=== PATIENT | female | born 1960 | race Caucasian/White ===

== ENCOUNTER 2020-01-16 17:24 | Emergency (ER) | payer MEDICARE ==
--- OUTSIDE RECORDS SUMMARY | 2020-01-16 17:30 | XMS REPORT | Continuity of Care Document ---
:1960 External Reference #:[id number] Author Name JULIANNA Mireles (transmitted by agent of provider Aliya Pierre) Address [address] [place] [address] Care Team Providers Name Role Phone Jaiden Colon MD - Internal Medicine Care Team Information Supervisor Anodizing Arpit Graves MD - Orthopaedic Care Team Information Supervisor Anodizing [phone] Surgery Lizbeth Farfan RPA - Medical Care Team Information Supervisor Anodizing [phone] Problems Active Problems Provider Date Essential hypertension Onset: 10/18/2018 Hyperlipidemia Onset: 10/18/2018 Recurrent pulmonary embolism JULIANNA iMreles Onset: 12/12/2019 Long-term current use of anticoagulant Onset: 10/18/2018 Note: Xarelto substituted 07/2019 Chronic kidney disease stage 3 JULIANNA Mireles Onset: 12/12/2019 Type 2 diabetes mellitus Onset: 10/18/2018 Cigarette smoker JULIANNA Mireles Onset: 12/12/2019 Gastroesophageal reflux disease Onset: 10/18/2018 Gastritis JULIANNA Mireles Onset: 12/12/2019 Note: erosions on endoscopy 2016 Hypothyroidism Onset: 10/18/2018 Overweight Onset: 10/18/2018 Localized, primary osteoarthritis Sierra Munson M.D. Onset: 09/27/2019 Note: knees Vitamin D deficiency Onset: 11/08/2018 Morbid obesity Sierra Munson M.D. Onset: 09/27/2019 History of polyp of colon JULIANNA Mireles Onset: 12/12/2019 Note: hyperplastic 2010 Social History Type Date Description Comments Sex Unknown ETOH Use Never used alcohol Tobacco Use Start: Unknown End: Patient is a former smoker Smoking Status Reviewed: 01/11/20 Patient is a former smoker Allergies, Adverse Reactions, Alerts Active Allergies Reaction Severity Comments Date Sulfa Antibiotics Hives Severe 12/02/2018 Medications Active Medications SIG Qnty Indications Ordering Date Provider [facility] Stool Softener take one capsule 30caps Brinkley 100mg q-o-dayfor Santana, 0 Capsules constipation Xarelto 1 by mouth every Cecilio 20mg Tablets day Santana, 9 Vitamin D-3 1 by mouth every 90tabs Brinkley 5000Unit Tablets day Santana, 9 Hydrochlorothiazide 1 by mouth every 90tabs Brinkley 50mg day Santana, 8 Tablets Tramadol HCL 1 by mouth with a 120tabs M15.9 Brinkley 50mg Tablets tylenol(500mg) Santana, 8 four times a day as needed Levothyroxine Sodium 1 by mouth every 30tabs Brinkley 150mcg day ( stop the 125 Santana, 8 Tablets mcg dose) Phentermine HCL 1 daily before 30caps Z00.01 Brinkley 37.5mg Capsules breakfast or 1-2 Santana, 8 hours after MD breakfast Acetaminophen 2 every 4 hours as 120tabs Brinkley 325mg Tablets needed for pain Santana, 8 Omeprazole 1 by mouth every 90caps Brinkley 20mg Capsules DR day Santana, 8 Metoprolol Tartrate 1 by mouth every 90tabs Brinkley 50mg day Santana, 8 Tablets Metformin HCL 1 by mouth twice a 180tabs Brinkley 500mg Tablets day Santana, 8 Lisinopril 1 by mouth every 90tabs Brinkley 10mg Tablets day Santana, 8 Atorvastatin Calcium 1 by mouth every 90tabs Brinkley 10mg day after supper Santana, 8 Tablets Melatonin 6 by mouth at Unknown 00/000 5mg Capsules bedtime 0 History Medications Xarelto 1 by mouth 42tabs Z79.01 Cecilio Santana, 08/15/2019 - 15mg every day 09/26/2019 Tablets Xarelto 1 daily 30tabs Cecilio Santana, 08/15/2019 - 20mg 09/26/2019 Tablets Trazodone HCL 1 by mouth 30tabs F51.01 Cecilio Santana, 07/20/2019 - every day 01/11/2020 50mg Tablets Immunizations CPT Code Status Date Vaccine Lot # [id number] Given 10/06/2018 Tdap - Tetanus/Diptheria/Acellular Pertussis [id number] Given 04/12/2018 Pneumonia Vaccine Vital Signs Date Vital Result Comment 01/11/2020 1:11pm Height 62 inches 5'2" Weight 290.44 lb Heart Rate 88 /min BP Systolic Sitting 128 mmHg BP Diastolic Sitting 80 mmHg O2 % BldC Oximetry 97 % BMI (Body Mass Index) 53.1 kg/m2 09/27/2019 1:38pm Height 62 inches 5'2" Weight 294.00 lb Heart Rate 60 /min BP Systolic 124 mmHg BP Diastolic 78 mmHg Respiratory Rate 16 /min Body Temperature 97.3 F Pain Level 9 BMI (Body Mass Index) 53.8 kg/m2 Results Test Acquired Date Facility Test Result H/L Range Note CBC Auto 12/30/2019 [facility] White Blood 10.9 10^3/uL High 3.5-10.[address] [place] [address] [phone] Red Blood Count 4.79 10^6/uL Normal 3.70-4.87 Hemoglobin 15.1 g/dL Normal 12.0-16.0 Hematocrit 44 % Normal 35-47 Mean Corpuscular Volume 93 fL Normal 80-97 Mean Corpuscular Hemoglobin 32 pg High 27-31 Mean Corpuscular HGB Conc 34 g/dL Normal 31-36 Red Cell Distribution Width 13 % Normal 10-15 Platelet Count 276 10^3/uL Normal 150-450 Mean Platelet Volume 9.8 fL Normal 7.4-10.4 Abs Neutrophils 5.6 10^3/uL Normal 1.5-7.7 Abs Lymphocytes 4.1 10^3/uL Normal 1.0-4.8 Abs Monocytes 0.7 10^3/uL Normal 0-0.8 Abs Eosinophils 0.5 10^3/uL Normal 0-0.6 Abs Basophils 0.1 10^3/uL Normal 0-0.2 Abs Nucleated RBC 0.0 10^3/uL Granulocyte % 51.4 % Lymphocyte % 37.4 % Monocyte % 6.2 % Eosinophil % 4.3 % Basophil % 0.7 % Nucleated Red Blood Cells % 0.2 Basic Metabolic 12/30/2019 [facility] Sodium 136 mmol/L Normal 135-145 Panel [address] [place] [address] [phone] Potassium 4.8 mmol/L Normal 3.5-5.0 Chloride 101 mmol/L Normal 101-111 Co2 Carbon Dioxide 25 mmol/L Normal 22-32 Anion Gap 10 mmol/L Normal 2-11 Glucose 105 mg/dL High 70-100 Blood Urea Nitrogen 31 mg/dL High 6-24 Creatinine 1.14 mg/dL High 0.51-0.95 BUN/Creatinine Ratio 27.2 High 8-20 Calcium 10.0 mg/dL Normal 8.6-10.3 Egfr Non- 48.5 >60 Egfr 58.6 >60 1 Lipid Profile 12/30/2019 [facility] Triglycerides 186 mg/dL 2 (Trig/Chol/HDL) [address] [place] [address] [phone] Cholesterol 128 mg/dL 3 HDL Cholesterol 44.6 mg/dL 4 LDL Cholesterol 46 mg/dL 5 Liver Function 12/30/2019 [facility] Total Protein 6.4 g/dL Normal 6.4-8.[address] [place] [address] [phone] Albumin 3.8 g/dL Normal 3.2-5.2 Globulin 2.6 g/dL Normal 2-4 Albumin/Globulin Ratio 1.5 Normal 1-3 Total Bilirubin 0.60 mg/dL Normal 0.2-1.0 Direct Bilirubin 0.10 mg/dL Normal 0.03-0.18 Indirect Bilirubin 0.5 mg/dL Normal 0.3-1.0 Alkaline Phosphatase 63 U/L Normal 34-104 Alt 9 U/L Normal 7-52 Ast 13 U/L Normal 13-39 Laboratory test 12/30/2019 [facility] Vitamin D 55.4 ng/mL High 20-50 6 finding 101 Total 25(Oh) [place] [address] [phone] Hepatitis C 12/30/2019 [facility] HCV Index 0.02 s/c Antibody [address] [place] [address] [phone] Hepatitis C Antibody Negative Negative Comp Metabolic 11/15/2019 [facility] Sodium 139 mmol/L Normal 135-[address] [place] [address] [phone] Potassium 4.3 mmol/L Normal 3.5-5.0 Chloride 105 mmol/L Normal 101-111 Co2 Carbon Dioxide 25 mmol/L Normal 22-32 Anion Gap 9 mmol/L Normal 2-11 Glucose 117 mg/dL High 70-100 Blood Urea Nitrogen 30 mg/dL High 6-24 Creatinine 1.25 mg/dL High 0.51-0.95 BUN/Creatinine Ratio 24.0 High 8-20 Calcium 9.9 mg/dL Normal 8.6-10.3 Total Protein 6.7 g/dL Normal 6.4-8.9 Albumin 4.0 g/dL Normal 3.2-5.2 Globulin 2.7 g/dL Normal 2-4 Albumin/Globulin Ratio 1.5 Normal 1-3 Total Bilirubin 0.60 mg/dL Normal 0.2-1.0 Alkaline Phosphatase 70 U/L Normal 34-104 Alt 10 U/L Normal 7-52 Ast 12 U/L Low 13-39 Egfr Non- 43.6 >60 Egfr 52.7 >60 7 Laboratory test 11/15/2019 [facility] Hemoglobin A1c 5.5 % Normal 4.0-5.6 8 finding 101 (Glyco HGB) [place] [address] [phone] Comp Metabolic 09/09/2019 [facility] Sodium 137 Normal 135- [address] mmol/[place] [address] [phone] Potassium 4.8 mmol/L Normal 3.5-5.0 Chloride 101 mmol/L Normal 101-111 Co2 Carbon Dioxide 29 mmol/L Normal 22-32 Anion Gap 7 mmol/L Normal 2-11 Glucose 101 mg/dL High 70-100 Blood Urea Nitrogen 23 mg/dL Normal 6-24 Creatinine 1.13 mg/dL High 0.51-0.95 BUN/Creatinine Ratio 20.4 High 8-20 Calcium 9.9 mg/dL Normal 8.6-10.3 Total Protein 6.3 g/dL Low 6.4-8.9 Albumin 3.8 g/dL Normal 3.2-5.2 Globulin 2.5 g/dL Normal 2-4 Albumin/Globulin Ratio 1.5 Normal 1-3 Total Bilirubin 0.90 mg/dL Normal 0.2-1.0 Alkaline Phosphatase 70 U/L Normal 34-104 Alt 11 U/L Normal 7-52 Ast 13 U/L Normal 13-39 Egfr Non- 49.0 >60 Egfr 59.2 >60 9 Inr/Protime 08/31/2019 [facility] Inr 1.33 High 0.82-1.[address] [place] [address] [phone] Inr/Protime 07/19/2019 [facility] Inr 2.32 High 0.82-1.[address] [place] [address] [phone] 1 Because ethnic data is not always readily available, this report includes an eGFR for both -Americans and non- Americans. The National Kidney Disease Education Program (NKDEP) does not endorse the use of the MDRD equation for patients that are not between the ages of 18 and 70, are , have extremes of body size, muscle mass, or nutritional status, or are non- or non-. According to the National Kidney Foundation, irrespective of diagnosis, the stage of the disease is based on the level of kidney function: Stage Description GFR(mL/min/1.73 m(2)) 1 Kidney damage with normal or decreased GFR 90 2 Kidney damage with mild decrease in GFR 60-89 3 Moderate decrease in GFR 30-59 4 Severe decrease in GFR 15-29 5 Kidney failure <15 (or dialysis) 2 Desirable: <150 Borderline High: 150-199 High: 200-499 Very High: >500 3 Desirable: <200 Borderline High: 200-239 High: >239 4 Low: <40 Desirable: 40-60 High: >60 5 Desirable: <100 Near Optimal: 100-129 Borderline High: 130-159 High: 160-189 Very High: >189 6 Total 25-Hydroxyvitamin D2 and D3 (25-OH-VitD) <10 ng/mL (severe deficiency) 10-19 ng/mL (mild to moderate deficiency) 20-50 ng/mL (optimum levels) 51-80 ng/mL (increased risk of hypercalciuria) >80 ng/mL (toxicity possible) 7 Because ethnic data is not always readily available, this report includes an eGFR for both -Americans and non- Americans. The National Kidney Disease Education Program (NKDEP) does not endorse the use of the MDRD equation for patients that are not between the ages of 18 and 70, are , have extremes of body size, muscle mass, or nutritional status, or are non- or non-. According to the National Kidney Foundation, irrespective of diagnosis, the stage of the disease is based on the level of kidney function: Stage Description GFR(mL/min/1.73 m(2)) 1 Kidney damage with normal or decreased GFR 90 2 Kidney damage with mild decrease in GFR 60-89 3 Moderate decrease in GFR 30-59 4 Severe decrease in GFR 15-29 5 Kidney failure <15 (or dialysis) 8 Therapeutic target for the treatment of diabetes mellitus patients is <7% HBA1C, and in selective patients <6.0%. Please refer to [place] [employer] diabetic care guidelines for further information. 9 Because ethnic data is not always readily available, this report includes an eGFR for both -Americans and non- Americans. The National Kidney Disease Education Program (NKDEP) does not endorse the use of the MDRD equation for patients that are not between the ages of 18 and 70, are , have extremes of body size, muscle mass, or nutritional status, or are non- or non-. According to the National Kidney Foundation, irrespective of diagnosis, the stage of the disease is based on the level of kidney function: Stage Description GFR(mL/min/1.73 m(2)) 1 Kidney damage with normal or decreased GFR 90 2 Kidney damage with mild decrease in GFR 60-89 3 Moderate decrease in GFR 30-59 4 Severe decrease in GFR 15-29 5 Kidney failure <15 (or dialysis) 10 Standard intensity warfarin therapeutic range: 2.0-3.0 High intensity warfarin therapeutic range: 2.5-3.5 11 Standard intensity warfarin therapeutic range: 2.0-3.0 High intensity warfarin therapeutic range: 2.5-3.5 Procedures Date Code Description Status 10/31/2018 68094181 Mammogram Completed 11/29/2010 32687981 Colonoscopy Completed Medical Devices Description No Information Available Encounters Type Date Location Provider Dx Diagnosis Office Visit 09/27/2019 [facility] Sierra Munson, M25.561 Pain in right 1:[facility]p [place] [facility] knee M25.461 Effusion, right knee M17.11 Unilateral primary osteoarthritis, right knee E66.01 Morbid (severe) obesity due to excess calories Z68.43 Body mass index (BMI) 50.0-59.9, adult Office Visit 09/12/2019 2:30p [facility] Cecilio Santana, M25.561 Pain in Care right knee E66.3 Overweight E11.9 Type 2 diabetes mellitus without complications Office Visit 08/15/2019 3:15p [facility] Cecilio Santana, M25.561 Pain in Care right knee 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 Office Visit 08/08/2019 3:15p [facility] Cecilio Santana, M25.561 Pain in Care right knee M25.562 Pain in left knee Office Visit 07/20/2019 2:45p [facility] Cecilio Santana, 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 M25.561 Pain in right knee E66.3 Overweight Assessments Date Code Description Provider 01/11/2020 I10 Essential (primary) hypertension JULIANNA Mireles 01/11/2020 Z86.711 Personal history of pulmonary embolism Lizbeth Farfan, JULIANNA 01/11/2020 E11.9 Type 2 diabetes mellitus without Lizbeth Farfan, JULIANNA complications 01/11/2020 E03.9 Hypothyroidism, unspecified Lizbeth Farfan, PA 01/11/2020 Z12.31 Encounter for screening mammogram for JULIANNA Mireles malignant neoplasm of breast 01/11/2020 Z68.43 Body mass index (BMI) 50.0-59.9, adult JULIANNA Mireles 09/27/2019 M25.561 Pain in right knee Sierra Munson M.D. 09/27/2019 M25.461 Effusion, right knee Sierra Munson M.D. 09/27/2019 M17.11 Unilateral primary osteoarthritis, right Sierra Munson M.D. knee 09/27/2019 E66.01 Morbid (severe) obesity due to excess Sierra Munson M.D. calories 09/27/2019 Z68.43 Body mass index (BMI) 50.0-59.9, adult Sierra Munson M.D. 09/12/2019 M25.561 Pain in right knee Cecilio Santana MD 09/12/2019 E66.3 Overweight Cecilio Santana MD 09/12/2019 E11.9 Type 2 diabetes mellitus without Cecilio Santana MD complications 08/15/2019 M25.561 Pain in right knee Cecilio Santana MD 08/15/2019 Z79.01 residential (current) use of anticoagulants Cecilio Santana MD 08/08/2019 M25.561 Pain in right knee Cecilio Santana MD 08/08/2019 M25.562 Pain in left knee Cecilio Santana MD 07/20/2019 F51.01 Primary insomnia Cecilio Santana MD 07/20/2019 M25.561 Pain in right knee Cecilio Santana MD 07/20/2019 E66.3 Overweight Cecilio Santana MD Plan of Treatment Future Appointment(s):04/10/2020 2:30 pm - JULIANNA Mireels at [facility]03/29/2020 2:00 pm - Sierra Munson M.D. at [facility] at [id number] - MANNY Mireles10 Essential (primary) hypertensionNew Labs: Basic Metabolic Panel, Ordered: 01/11/20Hepatitis C Antibody, Ordered: Hemoglobin A1c (Glyco HGB), Ordered: 01/11/20Comments:Current medication(s): HCTZ 50mg daily, Lisinopril 10mg daily, Metoprolol tartrate 50mg cnaokC11.711 Personal history of pulmonary embolismNew Labs:CBC Auto Diff, Ordered: Comments:Lifetime anticoagulationCurrent treatment with RiolybiV07.9 Type 2 diabetes mellitus without complicationsNew Labs:Hemoglobin A1c (Glyco HGB), Ordered: 01/11/20Comments:Current medication(s): Metformin 500mg BIDE03.9 Hypothyroidism, unspecifiedNew Labs:TSH (Thyroid Stim Horm), Ordered: Comments:Current supplementation: LT 150mcg druxdQ08.31 Encounter for screening mammogram for malignant neoplasm of breastNew Xrays:Mammogram Screening Nilson, Ordered: 01/11/20Z68.43 Body mass index (BMI) 50.0-59.9, adultComments:~114 lb weight loss since 12/2018Follow up:3 monthsAllNew Medication:[facility] Stool Softener 100 mg - take one capsule q-o-dayfor constipation Functional Status Functional Condition Comment Date Status Dentures Active Rolling walker is used to ambulate Active Mental Status Description No Information Available Referrals Refer to Reason for Referral Status Appt Date Arpit Graves MD Please arrive at the time listed on Received Complete your referral, this is your check in time. Please be sure to bring your insurance cards & photo ID as well as any copayment associated with the insurance. If you have any questions or concerns, please feel free to contact [place] @ [phone]. Thank you. [address] [place] [address] [phone]
[2020-01-16 18:24] VITALS: BP 106/65
--- NOTE | 2020-01-16 18:30 | UC ---
Lower Extremity/Ankle HPI - HPI Summary HPI Summary: 59 year old [id number] diabetic who noted some redness to her left foot near the base of her great toe over the past 2 days with tenderness. She denies any injury. No history of gout. She does have a history of pulmonary embolus however denies any calf pain and no shortness of breath. - History of Current Complaint Chief Complaint: UCLowerExtremity Stated Complaint: LEFT FOOT PAIN Time Seen by Provider: 01/16/20 18:18 Hx Obtained From: Patient ?: No Onset/Duration: Gradual Onset Severity Initially: Mild Severity Currently: Mild Pain Intensity: 9 Aggravating Factor(s): Ambulation Alleviating Factor(s): Rest Able to Bear Weight: Yes - Allergies/Home Medications Allergies/Adverse Reactions: Allergies Allergy/AdvReac Type Severity Reaction Status Date / Time Sulfa (Sulfonamide Allergy Severe hives and Verified 01/16/20 18:11 Antibiotics) dehydration Home Medications: Home Medications Acetaminophen [Acetaminophen Extra Strength] 500 mg PO QID 01/16/20 [History Confirmed 01/16/20] Cholecalciferol (Vitamin D3) [Vitamin D3] 125 mcg PO DAILY 01/16/20 [History Confirmed 01/16/20] Hydrochlorothiazide TAB* [Hydrodiuril TAB*] 50 mg PO BID 01/16/20 [History Confirmed 01/16/20] Levothyroxine TAB* [Synthroid TAB*] 150 mcg PO DAILY 01/16/20 [History Confirmed 01/16/20] Lisinopril TAB* [Prinivil TAB*] 10 mg PO DAILY 01/16/20 [History Confirmed 01/16] Metoprolol Tartrate 50 mg PO DAILY 01/16/20 [History Confirmed 01/16/20] Phentermine HCl 37.5 mg PO BID 01/16/20 [History Confirmed 01/16/20] Rivaroxaban TAB(*) [Xarelto 20 mg] 20 mg PO DAILY 01/16/20 [History Confirmed ] metFORMIN* [Glucophage 500 MG TAB *] 500 mg PO BID 01/16/20 [History Confirmed 01/16/20] traMADol TAB* [Ultram*] 50 mg PO QID 01/16/20 [History Confirmed 01/16/20] PMH/Surg Hx/FS Hx/Imm Hx Previously Healthy: Yes Endocrine History: Diabetes, Thyroid Disease Cardiovascular History: Cardiac Disease, Hypertension - Surgical History Surgical History: Yes Surgery Procedure, Year, and Place: - Family History Known Family History: Positive: Non-Contributory - Social History Alcohol Use: None Substance Use Type: None Smoking Status (MU): Former Smoker When Did the Patient Quit Smoking/Using Tobacco: 2006 Household Exposure Type: Cigarettes Review of Systems All Other Systems Reviewed And Are Negative: Yes Skin: Positive: Other - Redness to her left foot just below the great toe with tenderness. No streaking. The patient did saleem the edges of the erythema. Musculoskeletal: Negative: Calf Tenderness Is Patient Immunocompromised?: No Physical Exam Triage Information Reviewed: Yes Appearance: Well-Appearing, No Pain Distress, Well-Nourished Vital Signs: Initial Vital Signs Temp 98.6 F 01/16/20 18:19 Pulse 111 01/16/20 18:19 Resp 20 01/16/20 18:19 BP 106/65 01/16/20 18: Pulse Ox 100 01/16/20 18:19 Vital Signs Reviewed: Yes Musculoskeletal: Positive: Strength Intact, ROM Intact, Other: - Good peripheral pulses, neuro sensation and capillary refill. Normal range of motion. Neurological: Positive: Alert, Muscle Tone Normal Psychological Exam: Normal Skin: Positive: Other - There is an area of erythema at the base of the great toe dorsum of her foot which is approximately 1.5 cm in width approximately 2.5 cm in length with tenderness on palpation. No evidence of trauma or injury. Lower Extremity Course/Dx - Course Course Of Treatment: The patient is comfortable here. She is to definitely follow up with her primary care provider on Wednesday if no improvement. - Differential Dx/Diagnosis Provider Diagnosis: Cellulitis of foot Discharge ED - Sign-Out/Discharge Documenting (check all that apply): Patient Departure All imaging exams completed and their final reports reviewed: No Studies - Discharge Plan Condition: Good Disposition: HOME Prescriptions: Amoxicillin/Clavulanate TAB* [Augmentin TAB 875*] 875 mg PO BID 10 Days #20 tab Patient Education Materials: Cellulitis (DC) Referrals: Cecilio Santana MD [Primary Care Provider] - Additional Instructions: Elevate as much as possible, apply warm moist compresses to the red area 4-6 times a day for 20 minutes each time. Take the antibiotic with food. Definite follow-up on or Wednesday if improvement. If you develop red streaks up your foot or leg, fever or any worsening symptoms then you are to go to the emergency room. - Billing Disposition and Condition Condition: GOOD Disposition: Home - Attestation Statements Provider Attestation: This patient was not seen by me. I was available for consult. Chart reviewed. RACHANA
== END 2020-01-16 18:40 | disposition home or self-care (01) ==
LOC: UCCORT 17:24
DX: L03.032 Cellulitis of left toe (principal); E11.9 Type 2 diabetes mellitus without complications; E07.9 Disorder of thyroid, unspecified; I10 Essential (primary) hypertension; Z79.84 Long term (current) use of oral hypoglycemic drugs; Z79.890 Hormone replacement therapy; Z88.2 Allergy status to sulfonamides; Z79.899 Other long term (current) drug therapy; Z87.891 Personal history of nicotine dependence
CPT/HCPCS: 99212; G0463

== ENCOUNTER 2021-07-16 06:21 | Inpatient (IN) ==
[~2021-07-16 06:21] MED LIST: Buffered Lidocaine 1% SYRIN 1 ml INTRADERM ONE; Lactated Ringers 1000 ml BAG 1,000 ML IV SCH
[2021-07-16] MEDS ORDERED: ceFAZolin 1 GM ADVAN 1 GM ADDV.VIAL IVPB ONE (06:46)
[2021-07-16] MEDS ORDERED: ceFAZolin 2 GM in NS PREMIX 2 GM/100 ML BAG IVPB ONE (06:46)
[2021-07-16] MEDS ORDERED: Heparin 5000 UNITS/ML 1 mL VIAL ONE (06:46)
[2021-07-16] MEDS ORDERED: fentaNYL 250 mcg/5 ml 50 MCG/ML 5 ml VIAL (250 MCG) ONE ×2 (07:03→11:53)
[2021-07-16] MEDS ORDERED: Propofol 10 MG/ML 20 ML BTL ONE (07:03)
[2021-07-16] MEDS ORDERED: Dexamethasone IV 4 MG/ML VIAL 1 ml VIAL ONE ×2 (07:03→08:04)
[2021-07-16] MEDS ORDERED: Rocuronium 50 mg VIAL 10 mg/ml 5 ml VIAL (50 mg) ONE ×4 (07:03→11:43)
[2021-07-16] MEDS ORDERED: Lidocaine 2% PF 5 ML VIAL ONE (07:03)
[2021-07-16] MEDS ORDERED: Ondansetron 4 mg VIAL 2 MG/ML 2 ml VIAL ONE (07:03)
[2021-07-16] MEDS ORDERED: Midazolam 2 mg/2 ml VIAL 1 mg/ml 2 ml VIAL (2 mg) ONE (07:03)
[2021-07-16] MEDS ORDERED: Methylene Blue 0.5 % 50 MG/10 ML AMP IV ONE (07:10)
[2021-07-16] MEDS ORDERED: Bupivacaine 0.25% SDV 30 ML ONE (07:11)
[2021-07-16] MEDS ORDERED: Phenylephrine 40 mcg/mL 10mL (400mcg) SYRINGE ONE (08:05)
[2021-07-16] MEDS ORDERED: Phenylephrine IV 10 MG/ML 1 ml VIAL ONE ×2 (08:29→11:40)
[2021-07-16] MEDS ORDERED: Acetaminophen IV 1 GM/100ML 100 ML IV PRN (08:46)
[2021-07-16] MEDS ORDERED: Ondansetron 4 mg VIAL 2 MG/ML 2 ml VIAL IV PRN ×2 (08:46→13:15)
[2021-07-16] MEDS ORDERED: DiMENhydriNATE IV 50 mg/ml 1 ml VIAL IV PUSH PRN (08:46)
[2021-07-16] MEDS ORDERED: Naloxone 0.4 mg VIAL 0.4 mg/ml 1 ml VIAL IV PRN (08:46)
[2021-07-16] MEDS ORDERED: ceFAZolin VIAL VIAL ONE ×3 (11:32)
[2021-07-16] MEDS ORDERED: Sugammadex 500 MG/5 ML 5 ml VIAL IV PUSH ONE (12:49)
[2021-07-16] MEDS ORDERED: diPHENhydraMINE IV 50 MG/ML 1 ml VIAL (BENADRYL) SLOW PUSH PRN (13:15)
[2021-07-16] MEDS ORDERED: HYDROmorphone 0.5 MG/0.5 ML SYRINGE IV SLOW PU PRN (13:15)
[2021-07-16] MEDS ORDERED: HYDROmorphone 1 MG/1 ML SYRINGE ONE (13:18)
[2021-07-16] MEDS: HYDROmorphone 1 MG/1 ML SYRINGE IV PRN ×3 (13:20→13:54)
[2021-07-16] MEDS ORDERED: fentaNYL 100 mcg/2 ml 50 MCG/ML VIAL ONE (13:24)
[2021-07-16] MEDS: fentaNYL 100 mcg/2 ml 50 MCG/ML VIAL IV PRN ×4 (13:26→13:52)
[2021-07-16] MEDS ORDERED: Acetaminophen IV 1 GM/100ML 100 ML IV ONE (13:29)
[2021-07-16] MEDS: Lactated Ringers 1000 ml BAG 1,000 ML IV SCH ×2 (15:01→21:27)
[2021-07-16] MEDS: Heparin 5000 UNITS/ML 1 mL VIAL SUBCUT SCH ×2 (15:59→21:27)
[2021-07-16] MEDS: Metoprolol Tartrate 5 mg VIAL 5 ml VIAL (1 mg/ml) IV SCH (17:36)
[2021-07-16] MEDS ORDERED: Morphine 2 MG/ML SYRINGE IV ONE (18:15)
[2021-07-16] MEDS: HYDROmorphone 1 MG/1 ML SYRINGE IV SLOW PU PRN (19:29)
[2021-07-16] MEDS ORDERED: NS 0.9% 500 ml BAG 500 ML IV SCH (21:00)
[2021-07-16] MEDS: Famotidine IV 10 MG/ML 2 ml VIAL (20 mg) IV SLOW PU SCH (21:27)
[2021-07-17] MEDS: Metoprolol Tartrate 5 mg VIAL 5 ml VIAL (1 mg/ml) IV SCH ×4 (00:08→17:45)
[2021-07-17] MEDS: HYDROmorphone 1 MG/1 ML SYRINGE IV SLOW PU PRN ×3 (00:09→15:08)
[2021-07-17] MEDS: Lactated Ringers 1000 ml BAG 1,000 ML IV SCH (05:34)
[2021-07-17] MEDS: Heparin 5000 UNITS/ML 1 mL VIAL SUBCUT SCH ×3 (05:36→21:58)
[2021-07-17 06:04] LABS: ABS Lymphocytes 1.8 10^3/ul (1.0-4.8); ABS Monocytes 0.9 10^3/ul (0-0.8); ABS Neutrophils 11.3 10^3/ul (1.5-7.7); Hematocrit 38 % (35-47); Hemoglobin 12.9 g/dL (12.0-16.0); Lymphocyte % 12.7 %; Mean Corpuscular HGB Conc 34 g/dL (31-36); Mean Corpuscular Hemoglobin 31 pg (27-31); Mean Corpuscular Volume 90 fL (80-97); Mean Platelet Volume 9.9 fL (7.4-10.4); Platelet Count 194 10^3/uL (150-450); Red Blood Count 4.21 10^6 /uL (3.70-4.87); Red Cell Distribution Width 13 % (10-15)
[2021-07-17 06:24] LABS: Calcium 8.8 mg/dL (8.6-10.3); EGFR African American 70.2 (>60); Potassium 3.9 mmol/L (3.5-5.0)
[2021-07-17] MEDS: Famotidine IV 10 MG/ML 2 ml VIAL (20 mg) IV SLOW PU SCH ×2 (08:56→21:58)
[2021-07-17] MEDS: D5W 1/2 NS KCl 20 meq 1000 ml 1,000 ML IV SCH (13:40)
[2021-07-17] MEDS: HYDROcodone/ACET. 7.5/325 LIQ 15 ML UDC PO PRN (22:04)
[2021-07-18] MEDS: Metoprolol Tartrate 5 mg VIAL 5 ml VIAL (1 mg/ml) IV SCH ×2 (01:17→09:25)
[2021-07-18] MEDS: D5W 1/2 NS KCl 20 meq 1000 ml 1,000 ML IV SCH ×2 (02:43→16:59)
[2021-07-18] MEDS: Heparin 5000 UNITS/ML 1 mL VIAL SUBCUT SCH (07:49)
[2021-07-18] MEDS: Famotidine IV 10 MG/ML 2 ml VIAL (20 mg) IV SLOW PU SCH ×2 (09:26→22:45)
[2021-07-18] MEDS: HYDROcodone/ACET. 7.5/325 LIQ 15 ML UDC PO PRN ×2 (12:23→22:49)
[2021-07-19] MEDS: D5W 1/2 NS KCl 20 meq 1000 ml 1,000 ML IV SCH ×2 (01:30→08:26)
[2021-07-19 07:45] VITALS: BP 157/85
[2021-07-19] MEDS: Famotidine IV 10 MG/ML 2 ml VIAL (20 mg) IV SLOW PU SCH (08:26)
== END 2021-07-19 10:10 | disposition home or self-care (01) | DRG 621 ==
LOC: AA 06:21 → SSU 15:04
PROVIDERS: ADMIT Surgery; ATTEND Surgery

== ENCOUNTER 2022-12-22 08:15 | Inpatient (IN) ==
[~2022-12-22 08:15] MED LIST changes: +Naloxone 0.4 mg VIAL 0.4 mg/ml 1 ml VIAL IV PRN; +Ondansetron 4 mg VIAL 2 MG/ML 2 ml VIAL IV PRN; +fentaNYL 100 mcg/2 ml 50 MCG/ML VIAL IV PRN; +oxyCODONE/Acetamin 5/325 mg TAB PO PRN
[2022-12-22] MEDS ORDERED: ceFAZolin 2 GM in NS PREMIX 2 GM/100 ML BAG IVPB ONE (09:16)
[2022-12-22] MEDS ORDERED: Dexamethasone IV 4 MG/ML VIAL 1 ml VIAL ONE (10:19)
[2022-12-22] MEDS ORDERED: Ondansetron 4 mg VIAL 2 MG/ML 2 ml VIAL ONE (10:19)
[2022-12-22] MEDS ORDERED: Lidocaine 2% PF 5 ML VIAL ONE (10:19)
[2022-12-22] MEDS ORDERED: fentaNYL 100 mcg/2 ml 50 MCG/ML VIAL ONE (11:26)
[2022-12-22] MEDS ORDERED: Midazolam 2 mg/2 ml VIAL 1 mg/ml 2 ml VIAL (2 mg) ONE ×2 (11:26→11:59)
[2022-12-22] MEDS ORDERED: ROPIVACAINE 5 MG/ML 30 ML BTL (0.5%) ONE (11:26)
[2022-12-22] MEDS ORDERED: Ondansetron 4 mg VIAL 2 MG/ML 2 ml VIAL IV PRN (13:40)
[2022-12-22] MEDS ORDERED: Magnesium Hydroxide LIQ 30 ML UDC PO PRN (13:40)
[2022-12-22] MEDS ORDERED: Ondansetron ODT 4 mg TAB 4 MG TAB PO PRN (13:40)
[2022-12-22] MEDS ORDERED: Morphine 2 MG/ML SYRINGE IV PRN (13:40)
[2022-12-22] MEDS ORDERED: Lactulose 30 ml UDC PO PRN (13:40)
[2022-12-22] MEDS ORDERED: ceFAZolin 1 GM ADVAN 1 GM in NS 0.9% 50 ML 50 ML IVPB SCH (14:00)
[2022-12-22] MEDS ORDERED: Propofol 10 MG/ML 20 ML BTL ONE (15:16)
[2022-12-22] MEDS ORDERED: oxyCODONE/Acetamin 5/325 mg TAB ONE (16:13)
[2022-12-22] MEDS ORDERED: Albuterol HFA INHALER 8 gm MDI INH PRN (17:22)
[2022-12-22] MEDS: Lactated Ringers 1000 ml BAG 1,000 ML IV SCH (17:35)
[2022-12-22] MEDS: ceFAZolin 1 GM ADVAN 1 GM in NS 0.9% 50 ML 50 ML IVPB SCH (22:11)
[2022-12-22] MEDS: Magnesium Hydroxide LIQ 30 ML UDC PO SCH (22:44)
[2022-12-23] MEDS: Lactated Ringers 1000 ml BAG 1,000 ML IV SCH (03:33)
[2022-12-23 05:53] LABS: Hematocrit 34 % (35-47); Hemoglobin 11.3 g/dL (12.0-16.0); Mean Platelet Volume 9.3 fL (7.4-10.4); Platelet Count 167 10^3/uL (150-450)
[2022-12-23] MEDS: ceFAZolin 1 GM ADVAN 1 GM in NS 0.9% 50 ML 50 ML IVPB SCH ×2 (05:59→13:26)
[2022-12-23 06:38] LABS: Calcium 8.7 mg/dL (8.6-10.3); Creatinine, Serum 0.87 mg/dL (0.51-0.95); Potassium 4.5 mmol/L (3.5-5.0); eGFR CKD-EPI 74.4 (>60)
[2022-12-23] MEDS: Magnesium Hydroxide LIQ 30 ML UDC PO SCH (08:05)
[2022-12-23] MEDS ORDERED: MULTIVITAMIN MIN IRON FA VIT K PO SCH (09:00)
[2022-12-23] MEDS ORDERED: Vitamin THERAPEUTIC TAB PO SCH (09:00)
[2022-12-23] MEDS ORDERED: IRON PO SCH (09:00)
[2022-12-23] MEDS ORDERED: [UNRECOGNIZED DRUG - OTHER] PO SCH (09:00)
[2022-12-23] MEDS ORDERED: Influenza vaccine *QUAD* *2022-23* 0.5 ML SYRINGE IM ONE (09:00)
[2022-12-23 11:19] VITALS: BP 114/72
[2022-12-23] MEDS ORDERED: Scopolamine 1 mg/72hr PATCH TRANSDERM SCH (13:00)
== END 2022-12-23 19:24 | disposition home health service (06) | DRG 470 ==
LOC: SSU → AA 08:15 → INTOOBSV 08:15 → OBSVTOIN 08:15
PROVIDERS: ADMIT Orthopaedic Surgery Adult Reconstructive Orthopaedic Surgery; ATTEND Orthopaedic Surgery Adult Reconstructive Orthopaedic Surgery